=== PATIENT | female | born 1985 ===

== ENCOUNTER 2018-10-01 05:22 | Inpatient (IN) | payer MEDICAID, SELFPAY ==
[2018-10-01 06:15] VITALS: BMI 28.3
[2018-10-01] MEDS ORDERED: Lactated Ringer's 1,000 ML IV SCH (06:15)
[2018-10-01 06:49] LABS: BASO % 0.4 % (0.0-2.0); EOS # 0.1 K/uL (0.0-0.7); EOS % 1.2 % (0.0-4.0); HEMOGLOBIN 13.2 g/dL (12.0-16.0); LYMPH # 1.5 K/uL (1.0-4.3); LYMPH % 18.4 % (20.0-40.0); MEAN CELL VOLUME 90.3 fl (81.0-99.0); MEAN CORPUSCULAR HEMOGLOBIN 30.5 pg (27.0-31.0); MEAN CORPUSCULAR HGB CONC 33.8 g/dL (33.0-37.0); MEAN PLATELET VOLUME 10.1 fl (7.2-11.7); MONO # 0.7 K/uL (0.0-0.8); MONO % 8.2 % (0.0-10.0); NEUT # 5.8 K/uL (1.8-7.0); NEUT % 71.8 % (50.0-75.0); RBC 4.33 Mil/uL (3.80-5.20); RED CELL DISTRIBUTION WIDTH 14.1 % (11.5-14.5); WHITE BLOOD COUNT 8.1 K/uL (4.8-10.8)
[2018-10-01] MEDS ORDERED: OXYTOCIN/0.9 % NS 20 UNIT/1,000 ML BAG IV ONE (09:13)
[2018-10-01] MEDS ORDERED: Oxytocin 30 UNIT 30 UNITS/500 ML BAG IV ONE (09:13)
[2018-10-01] MEDS ORDERED: Benzocaine/Menthol SPRAY TOP PRN (11:20)
[2018-10-01] MEDS ORDERED: Oxycodone/Acetaminophen 5/325 mg Tab PO PRN (11:20)
--- NOTE | 2018-10-01 13:04 | OBDS ---
DELIVERY PERSONNEL Delivery Doctor: Ruthy Ornelas MD Cold Rolling Supervisor: Alba Gallagher RN Resident: MD perry MATERNAL INFORMATION Delivery Anesthesia: None Medications in Delivery: pitocin Estimated Blood Loss (ml): 300 Placenta Cultured: No Maternal Complications: None RN Comments: Atraumatic of viable babygirl with lusty cry skin to skin initiated immediately 5 minutes post patient requested baby to be taken due to her discomfort. Skin to skin initiated at 11: 10. recieved 9/9 APGARs, Patient had a 2nd degree lacertion repaired by Dr. Ornelas. Patie nt and recoverying well. Provider Comments: of live female infact, position DK without epidural anesthesia. No nuchal c ord. Meconium noted. Baby suctioned at perineum. placed on maternal abdomen for skin to skin. Cord was double clamped then cut by dad. Spontaneous delivery of intact placenta with 3-vessel cord. 2nd degree perineal laceration. QBL: 300cc -Vivian Carter, Pgy-1 Addendum: I was present and participated in delivery of infant. Agree with above note. Johnson LABOR SUMMARY EDC: 09/30/2018 00:00 No. Babies in Womb: 1 Attempted: No Labor Anesthesia: None LABOR INFORMATION Reason for Induction: Not Applicable Onset of Labor: 10/01/2018 05:00 Complete Dilatation: 10/01/2018 10:30 Oxytocin: N/A Group B Beta Strep: Negative Antibiotics # of Doses: 0 Steroids Given: None Reason Steroids Not Administered: Not Applicable Other Reason Not Administered: Not required MEMBRANES Membranes Rupture Method: Artificial Rupture of Membranes: 10/01/2018 10:30 Length of Rupture (hrs): 0.47 Amniotic Fluid Color: Light Meconium Amniotic Fluid Amount: Moderate Amniotic Fluid Odor: Normal STAGES OF LABOR Stage 1 hrs: 5 Stage 1 min: 30 Stage 2 hrs: 0 Stage 2 min: 28 Stage 3 hrs: 0 Stage 3 min: 4 Total Time in Labor hrs: 6 Total Time in Labor min: 2 VAGINAL DELIVERY Episiotomy: None Laceration Extension: Second Degree Laceration Type: Perineal Laceration Repair: Yes Laceration Repair Note: Second-degree midline perineal laceration. Area infiltrated with 1% lidocai ne. Laceration repaired with 2.0 repeated without complication. Patient tolerated well. Initial Vag Sponge Count: 10 Final Vag Sponge Count: 10 Initial Vag Sharps Count: 2 Final Vag Sharps Count: 2 Sponge Count Correct: Yes Sharps Count Correct: Yes Count Comment: Counted by Dr. Ornelas and Anisa Erickson BABY A INFORMATION Infant Delivery Date/Time: 10/01/2018 10:58 Method of Delivery: Vaginal Born in Route : No : N/A Forceps: Outlet Vacuum Extraction: N/A Shoulder Dystocia : No SHOULDER DYSTOCIA BABY A Infant Delivery Date/Time: 10/01/2018 10:58 PRESENTATION/POSITION BABY A Presentation: Cephalic Cephalic Presentation: Vertex Vertex Position: Left Occipital Anterior Breech Presentation: N/A PLACENTA INFORMATION BABY A Placenta Delivery Time : 10/01/2018 11:02 Placenta Method of Delivery: Spontaneous Placenta Status: Delivered SCORES BABY A Heart Rate 1 min: >100 bpm Resp Effort 1 min: Good Cry Reflex Irritability 1 min: Cough or Sneeze or Pulls Away Muscle Tone 1 min: Active Motion Color 1 min: Body Pettibone, Extremities Blue Resuscitation Effort 1 min: N/A SCORE 1 MIN: 9 Heart Rate 5 min: >100 bpm Resp Effort 5 min: Good Cry Reflex Irritability 5 min: Cough or Sneeze or Pulls Away Muscle Tone 5 min: Active Motion Color 5 min: Body Pettibone, Extremities Blue Resuscitation Effort 5 min: N/A SCORE 5 MIN: 9 INFANT INFORMATION BABY A Gestational Age at Delivery: 40.0 Gestational Status: Term Infant Outcome : Liveborn Infant Condition : Stable Infant Sex: Female IDENTIFICATION/MEDS BABY A ID Band Number: [id number] ID Band Location: Left Leg; Left Arm Vitamin K Given : Aquamephyton 0.5 mg IM Erythromycin Given: Given Both Eyes WEIGHT/LENGTH BABY A Infant Birthweight (gms): 4040 Infant Weight (lb): 8 Weight (oz): 14 Infant Length Inches: 21.00 Length cms: 53.3 CORD INFORMATION BABY A No. Cord Vessels: 3 Nuchal Cord : N/A Cord Blood Taken: No Infant Suction: Mouth ASSESSMENT BABY A Infant Complications: None Physical Findings at Delivery: Within Normal Limits Infant Respirations: Appears Normal Independent Sales Representative/ALS Called : No Care By: Dr Virgen Transferred To: Remains with Mother
--- NOTE | 2018-10-02 07:17 | OBPPN ---
Datetime: 10/02/2018 06:56 PP Pain Prov: Within normal limits PP Nausea Prov: Denies PP Flatus Prov: Yes PP BM Prov: No PP Breasts Prov: Normal PP Heart Prov: Normal PP Lungs Prov: Normal PP Abdomen/Uterus Prov: Normal PP Lochia Prov: Not Done PP Vulva/Perineum Prov: Not Done PP CVA Tenderness Prov: Normal PP Extremities Prov: Normal PP C/S Incision Prov: Not Applicable PP Progress Prov: Normal PP Impression Prov: Normal progression PP Plan Prov: Continue present management PP Progress Note Prov: S: 33 yo s/p on 10/01/18, PPD1. Pt was seen and examined at bedsid e this AM. No overnight events. Pain is minimal. Ambulating and tolerating PO diet without difficulty . Breast feeding exclusively. Lochia < menses. +Flatus/- BM. Denies dizziness, orthostatic changes, change in vision, palpitations, chest pain, fever, chills, diarrhea, nausea and vomiting. O: VS: Stable overnight GEN: NAD Cardio: S1S2, no murmurs Lungs: clear breath sounds b/l, no wheezing Abdomen: BS+, appropriate tenderness to palpation. Uterus is firm and at the level of the umbilic us. EXT: No edema, calves non-tender NEURO/PSYCH: AAOx3, no grossly focal deficits, preserved affect and mood. H/H: aCBC: 13.2/39.9 pCBC: pending Assessment/Plan: 33 yo s/p on 10/01/18, PPD1. Pt remains afebrile, tolerating pain. -Regular diet -Anticipating d/c on 10/03 -Continue with current management -Encourage and ambulating -Ibuprofen 600mg q6 for pain Taniya Dodge PGY1 OB Hospitalist Addendum: Pt seen and examined by me. Agree w/ above. PPD 1 s/p , doing well, breast and bottle feeding. Continue current care. (ES) IP PP Procedures: None Vital Signs Provider PP: Reviewed; Within Normal Limits
[2018-10-02 07:51] LABS: BASO # 0.1 K/uL (0.0-0.2); BASO % 0.6 % (0.0-2.0); EOS # 0.1 K/uL (0.0-0.7); EOS % 1.1 % (0.0-4.0); HEMOGLOBIN 11.8 g/dL (12.0-16.0); LYMPH % 18.6 % (20.0-40.0); MONO # 0.7 K/uL (0.0-0.8); MONO % 6.7 % (0.0-10.0); NEUT # 7.7 K/uL (1.8-7.0); NRBC % 0.1 % (0.0-0.0); RBC 3.81 Mil/uL (3.80-5.20); RED CELL DISTRIBUTION WIDTH 14.2 % (11.5-14.5); WHITE BLOOD COUNT 10.5 K/uL (4.8-10.8)
[2018-10-02] MEDS: Multivitamin With Minerals Tab PO SCH (08:58)
[2018-10-03] MEDS: Multivitamin With Minerals Tab PO SCH (09:07)
--- NOTE | 2018-10-03 10:18 | OBPPN ---
Datetime: 10/03/2018 05:47 PP Pain Prov: Within normal limits PP Nausea Prov: Denies PP Flatus Prov: Yes PP BM Prov: No PP Breasts Prov: Not Done PP Heart Prov: Normal PP Lungs Prov: Normal PP Abdomen/Uterus Prov: Normal PP Lochia Prov: Normal PP Vulva/Perineum Prov: Normal PP CVA Tenderness Prov: Normal PP Extremities Prov: Normal PP C/S Incision Prov: Not Applicable PP Progress Prov: Normal PP Impression Prov: Normal progression PP Plan Prov: Continue present management PP Progress Note Prov: S: 33 yo s/p on 10/01/18, PPD2. Pt was seen and examined at [facility] this AM. No overnight events. Pain is minimal. Ambulating and tolerating PO diet without difficulty . Breast feeding exclusively. Lochia < menses. +Flatus/- BM. Denies dizziness, orthostatic changes, changes in vision, palpitations, chest pain, fever, chills, diarrhea, nausea and vomiting. O: VS: Stable overnight GEN: NAD Cardio: S1S2, no murmurs Lungs: clear breath sounds b/l, no wheezing Abdomen: BS+, appropriate tenderness to palpation. Uterus is firm and at the level of the umbilic us. EXT: No edema, calves non-tender NEURO/PSYCH: AAOx3, no grossly focal deficits, preserved affect and mood. H/H: aCBC: 13.2/39.9 pCBC: 11.8/34.7 Assessment/Plan: 33 yo s/p on 10/01/18, PPD2. Pt remains afebrile, tolerating pain. -Regular diet -D/C today, 10/03 -Continue with current management -Encourage and ambulating -Ibuprofen 600mg q6 for pain Pamela Walker, PGY 1 Patient seen and examined by me this am. Agree with above H+P. --Dr. Kumar IP PP Procedures: None Vital Signs Provider PP: Reviewed; Within Normal Limits
--- NOTE | 2018-10-03 10:18 | OBDCSUM ---
Datetime: 10/03/2018 05:49 Discharged to, Provider: [facility] Instr Activity: Normal activity; May Shower Disch Instr Diet: Regular Discharge Instructions, Provider: Routine instructions given Discharge Diagnosis, Provider: Term Delivered Discharge Time: 10/03/2018 10:00 Follow up in weeks, Provider: 6 weeks Disch Referrals: None Contraception discussed, Prov: Yes Disch Activity Restrictions: No exercising; No lifting; No sexual activity; Nothing in vagina - Inte rcourse, tampons, douche Discharge Comment, Provider: 33 yo s/p of baby girl on 10/01/18 at 40+1 weeks EGA. [place]: Female, Wt. 4040 gm, 9/9 Post- D/C Summary: No OB complications. No complications during post- period. Lochia i s less than menses. Pt able to pass flatus, voiding well and able to ambulate without difficulty. Has not yet had a BM. Tolerating regular diet w/o N/V. Fundus firm below umbilicus level. Pt is hemodyna mically stable (EBL 100cc). Patient received Rhogam. H/H: aCBC: 13.2/39.9; pCBC: 11.8/34.7 Discharge Instructions given to patient: Encourage PNV 1 tab po q/day Ibuprofen 600 mg 1 tab po prn q4-6 if moderate pain #30. NO REFILL. Ambulatory with caution, nothing per vagina/sex for 4 weeks, no heavy lifting, avoid stairs, if ex cessive bleeding or fever without relief from Tylenol go to ED ED precautions: If excessive bleeding, pain that does not get relief, fever >100.4, palpitations, SOB, CP or other concerning symptom go to the ED. PT was urged if feeling sad, mood swing, depression, neglect of baby, suicidal thoughts, homicidal thoughts go to ER or call 911 for help Follow-up [facility] Karen Berman 6 weeks post- Pamela Iparraguirre, PGY 1 Contraception after Delivery: Undecided
[2018-10-03 18:14] VITALS: BP 105/65; PULSE 77; RESP 20; TEMP 98.3; O2SAT 99
== END 2018-10-03 13:00 | disposition home or self-care (01) | DRG 560 ==
LOC: H.EROB2 05:22 → H.L&D 06:25 → H.OB/GYN 15:22
PROVIDERS: ADMIT Obstetrics & Gynecology; ATTEND Obstetrics & Gynecology
PROC: 10E0XZZ Delivery of Products of Conception, External Approach (ICD-10-PCS; principal; 2018-10-01)
PROC: 0KQM0ZZ Repair Perineum Muscle, Open Approach (ICD-10-PCS; 2018-10-01)
PROC: 4A1HXCZ Monitoring of Products of Conception, Cardiac Rate, External Approach (ICD-10-PCS; 2018-10-01)
DX: O70.1 Second degree perineal laceration during delivery (principal); O77.0 Labor and delivery complicated by meconium in amniotic fluid; Z37.0 Single live birth; Z3A.40 40 weeks gestation of pregnancy